=== PATIENT | female | born 1970 ===

== ENCOUNTER 2024-12-05 14:33 | Emergency (ER) | payer SELFPAY ==
[~2024-12-05] VITALS: Ht 160 cm; Wt 61.4 kg
[2024-12-05 14:42] VITALS: TEMP 97.7
[2024-12-05 15:25] LABS: COVID AG,FIA SOURCE NASAL SWAB
[2024-12-05 15:45] LABS: PLATELET COUNT (AUTO) 476 K/uL (150-450); RED BLOOD CELL COUNT(AUTO) 4.67 MIL/uL (4.00-5.20); RED CELL DISTRIBUTION WIDTH 14.4 % (11.5-14.5); WHITE BLOOD COUNT (AUTO) 10.8 K/uL (4.5-11.0)
[2024-12-05 15:46] LABS: SARS-COV2 (COVID) ANTIGEN,FIA Negative (Negative)
[2024-12-05 15:56] LABS: CALCIUM, TOTAL 9.0 mg/dL (8.8-10.5); CREATININE 0.91 mg/dL (0.60-1.30); GLOMERULAR FILTR. RATE CALC > 60 mL/min (>60); GLUCOSE,RANDOM 123 mg/dL (70-110); SODIUM SERUM 141 mmol/L (136-145); UREA NITROGEN, BLOOD 19 mg/dL (7-18)
[2024-12-05] MEDS ORDERED: LORazepam 2 MG/ML VIAL ONE (16:11)
[2024-12-05] MEDS: LORazepam 2 MG/ML VIAL IM ONE (16:20)
[2024-12-05] MEDS ORDERED: LORazepam 2 MG/ML VIAL IM PRN (23:00)
[2024-12-06 01:32] VITALS: BP 140/76; PULSE 97; RESP 14; O2SAT 95
== END 2024-12-06 01:34 | disposition home or self-care (01) ==
LOC: EMS 14:33
DX: G10 Huntington's disease (principal); E11.9 Type 2 diabetes mellitus without complications; I10 Essential (primary) hypertension; F32.A Depression, unspecified; K21.9 Gastro-esophageal reflux disease without esophagitis
CPT/HCPCS: 99291; 87426; 80048; 85025; 36415; 96372; G0480; J1200; J1630; J2060; 99284